=== PATIENT | female | born 1960 | race Caucasian/White ===

== ENCOUNTER 2017-05-17 07:28 | Emergency (ER) | payer BC, MEDICAID ==
--- NOTE | 2017-05-17 07:53 | UC ---
Respiratory Complaint HPI - HPI Summary HPI Summary: cough x 2 day , the cough is dry , no nasal congestion, + sore throat , no fever, no chills, no sob or chest pain - History of Current Complaint Chief Complaint: UCRespiratory Stated Complaint: COUGH,SORE THROAT Time Seen by Provider: 05/17/17 07:36 Hx Obtained From: Patient Hx Last Menstrual Period: TWO WEEKS AGO Onset/Duration: Gradual Onset, Lasting Days - 2, Still Present Timing: Constant Severity Initially: Moderate Severity Currently: Moderate Character: Cough: Nonproductive Aggravating Factors: Exertion, Deep Breaths Alleviating Factors: Nothing Associated Signs And Symptoms: Negative: Dyspnea, Fever, Chills, Pleuritic Chest Pain, Hemoptysis, Dizziness, Calf Pain, Calf Swelling, URI, Nasal Congestion - Allergies/Home Medications Allergies/Adverse Reactions: Allergies Allergy/AdvReac Type Severity Reaction Status Date / Time Hydrocodone [From Vicodin] Allergy Hives Verified 08/22/13 12:05 Metformin Allergy Nausea Verified 05/17/17 07:34 Oxycodone Allergy Hives Verified 05/17/17 07:34 Penicillins Allergy Hives Verified 05/17/17 07:34 PMH/Surg Hx/FS Hx/Imm Hx Endocrine History: Diabetes Cardiovascular History: Hypertension Respiratory History: COPD - Surgical History Surgical History: Yes Surgery Procedure, Year, and Place: POLYP REMOVED FROM VOICE BOX 2 YRS AGO - Family History Known Family History: Positive: Hypertension, Diabetes - Social History Alcohol Use: None Substance Use Type: None Smoking Status (MU): Heavy Every Day Tobacco Smoker Type: Cigarettes Amount Used/How Often: 1 pack/per day Have You Smoked in the Last Year: Yes Household Exposure Type: Cigarettes Review of Systems Constitutional: Negative Skin: Negative Eyes: Negative, Blurred Vision ENT: Negative Respiratory: Cough Cardiovascular: Negative Gastrointestinal: Negative All Other Systems Reviewed And Are Negative: Yes Physical Exam Triage Information Reviewed: Yes Appearance: Well-Appearing, No Pain Distress, Obese Vital Signs: Initial Vital Signs Temp 98.1 F 05/17/17 07:38 Pulse 96 05/17/17 07:38 Resp 24 05/17/17 07:38 BP 125/68 05/17/17 07:38 Pulse Ox 96 05/17/17 07:38 Vital Signs Reviewed: Yes Eye Exam: Normal Eyes: Positive: Conjunctiva Clear ENT: Positive: Normal ENT inspection, Hearing grossly normal, Pharynx normal Neck: Positive: Supple, Nontender, No Lymphadenopathy Respiratory: Positive: Chest non-tender, Lungs clear, Normal breath sounds Cardiovascular: Positive: RRR, No Murmur, Pulses Normal Abdominal Exam: Normal Skin Exam: Normal UC Diagnostic Evaluation - Laboratory O2 Sat by Pulse Oximetry: 96 Respiratory Course/Dx - Differential Dx/Diagnosis Provider Diagnoses: Bronchitis Discharge - Discharge Plan Condition: Stable Disposition: HOME Prescriptions: Benzonatate CAP* [Tessalon 100 MG CAP*] 100 mg PO TID PRN #21 cap PRN Reason: Cough DOXYcycline CAP(*) [DOXYcycline 100MG CAP(*)] 100 mg PO BID #20 cap Patient Education Materials: How to Stop Smoking (ED), Acute Bronchitis (ED) Referrals: Kindra Villagomez ASSISTANT BUSINESS MANAGER [Primary Care Provider] - 7 Days
[2017-05-17 07:56] VITALS: BP 125/68
== END 2017-05-17 07:59 | disposition home or self-care (01) ==
LOC: UCCORT 07:28
DX: J40 Bronchitis, not specified as acute or chronic (principal); E11.9 Type 2 diabetes mellitus without complications; I10 Essential (primary) hypertension; J44.9 Chronic obstructive pulmonary disease, unspecified; E66.9 Obesity, unspecified; Z88.5 Allergy status to narcotic agent; Z88.0 Allergy status to penicillin; Z88.8 Allergy status to other drugs, medicaments and biological substances; F17.210 Nicotine dependence, cigarettes, uncomplicated
CPT/HCPCS: 99212; G0463

== ENCOUNTER 2017-06-15 09:55 | Emergency (ER) | payer BC, MEDICAID ==
--- NOTE | 2017-06-15 10:14 | UC ---
Respiratory Complaint HPI - HPI Summary HPI Summary: 57 YEAR OLD FEMALE PRESENTS WITH COMPLAINS OF SINUS CONGESTION, SORE THROAT AND HEADACHE. - History of Current Complaint Chief Complaint: UCRespiratory Stated Complaint: COUGH, CONGESTION Time Seen by Provider: 06/15/17 10:13 Hx Last Menstrual Period: 07/28/13 Onset/Duration: Sudden Onset Timing: Constant Severity Initially: Moderate Severity Currently: Moderate Pain Scale Used: 0-10 Numeric - 4 Aggravating Factors: Recumbent Position Associated Signs And Symptoms: Positive: Fever, Chills - Allergies/Home Medications Allergies/Adverse Reactions: Allergies Allergy/AdvReac Type Severity Reaction Status Date / Time Hydrocodone [From Vicodin] Allergy Hives Verified 06/15/17 10:02 Oxycodone Allergy Hives Verified 06/15/17 10:02 Penicillins Allergy Hives Verified 06/15/17 10:02 PMH/Surg Hx/FS Hx/Imm Hx - Surgical History Surgical History: Yes Surgery Procedure, Year, and Place: POLYP REMOVED FROM VOICE BOX 2 YRS AGO - Family History Known Family History: Positive: Hypertension, Diabetes - Social History Alcohol Use: None Substance Use Type: None Smoking Status (MU): Heavy Every Day Tobacco Smoker Type: Cigarettes Amount Used/How Often: 1 pack/per day Have You Smoked in the Last Year: Yes Household Exposure Type: Cigarettes Review of Systems Constitutional: Negative Skin: Negative Eyes: Negative ENT: Sore Throat, Nasal Discharge, Sinus Congestion, Sinus Pain/Tenderness Respiratory: Negative Cardiovascular: Negative Gastrointestinal: Negative Genitourinary: Negative Motor: Negative Neurovascular: Negative Musculoskeletal: Negative Neurological: Negative Psychological: Negative All Other Systems Reviewed And Are Negative: Yes Physical Exam Triage Information Reviewed: Yes Vital Signs: Initial Vital Signs Temp 36.8 C 06/15/17 10:05 Pulse 109 06/15/17 10:05 Resp 18 06/15/17 10:05 BP 117/70 06/15/17 10:05 Pulse Ox 96 06/15/17 10:05 Eye Exam: Normal ENT: Positive: Pharyngeal erythema, Nasal congestion, Nasal drainage Dental Exam: Normal Neck exam: Normal Neck: Positive: 1 Respiratory Exam: Normal Cardiovascular Exam: Normal Abdominal Exam: Normal Musculoskeletal Exam: Normal Neurological Exam: Normal Psychological Exam: Normal Skin Exam: Normal UC Diagnostic Evaluation - Laboratory O2 Sat by Pulse Oximetry: 96 Respiratory Course/Dx - Differential Dx/Diagnosis Provider Diagnoses: PHARYNGITIS Discharge - Discharge Plan Condition: Stable Disposition: HOME Prescriptions: Albuterol HFA INHALER* [Ventolin HFA Inhaler*] 1 puff INH Q6H PRN #1 mdi PRN Reason: Wheezing LoraTADine TAB(NF) [Claritin 10 MG TAB(NF)] 10 mg PO DAILY #30 tab Sulfamethox/Trimethoprim DS* [Bactrim DS 800/160 TAB*] 1 tab PO BID #14 tab predniSONE TAB* [Deltasone TAB*] 40 mg PO DAILY #10 tab Patient Education Materials: Cold Symptoms (ED) Referrals: Perri Kidd MD [Primary Care Provider] - If Needed
[2017-06-15 10:27] VITALS: BP 117/70
--- NOTE | 2017-06-15 10:44 | RAD ---
Indication: Cough x1 month. 2 views the chest including dual energy PA views demonstrates no mediastinal shift. Heart is of normal size and configuration. Lung foote demonstrate no pleural fluid, pneumonia or pneumothorax. No changes noted since August 22, 2013. IMPRESSION: No active cardiopulmonary disease is noted.
== END 2017-06-15 10:52 | disposition home or self-care (01) ==
LOC: UCCORT 09:55
DX: J02.9 Acute pharyngitis, unspecified (principal); Z88.5 Allergy status to narcotic agent; Z88.0 Allergy status to penicillin; F17.210 Nicotine dependence, cigarettes, uncomplicated
CPT/HCPCS: 71020; 99212; G0463